=== PATIENT | male | born 1995 | race Caucasian/White ===

== ENCOUNTER 2022-03-09 15:58 | Emergency (ER) | payer SELFPAY ==
[2022-03-09 16:23] LABS: Urine Blood Negative (Negative); Urine Glucose Negative (Negative); Urine Protein Negative (Negative)
--- NOTE | 2022-03-09 17:12 | RAD REPORT ---
EXAM DESCRIPTION: CT - Head Brain Wo Cont - 03/09/2022 5:00 pm CLINICAL HISTORY: Neuro deficit, acute, stroke suspected COMPARISON: No comparisons TECHNIQUE: All CT scans are performed using dose optimization technique as appropriate and may inclu de automated exposure control or mA/KV adjustment according to patient size. FINDINGS: No intracranial hemorrhage, hydrocephalus or extra-axial fluid collection.No areas of brai n edema or evidence of midline shift. The paranasal sinuses and mastoids are clear. The calvarium is intact. IMPRESSION: No acute intracranial abnormality.
--- NOTE | 2022-03-09 17:45 | ER ---
Nurse's Notes [facility] Name: William Lopez Age: 26 yrs Sex: Male : 1995 Arrival Date: 03/09/2022 Time: 15:59 Bed 6 Private MD: Diagnosis: Weakness-And numbness of left hand Presentation: 03/09 16:06 Chief complaint: Patient states: 25 min ago my left hand/arm started to feel numb. Pt ld1 reports abusing drugs for the past 24 hours. Denies injury to left arm. Coronavirus screen: At this time, the client does not indicate any symptoms associated with coronavirus-19. Ebola Screen: No symptoms or risks identified at this time. Initial Sepsis Screen: Does the patient meet any 2 criteria? No. Patient's initial sepsis screen is negative. Does the patient have a suspected source of infection? No. Patient's initial sepsis screen is negative. Risk Assessment: Do you want to hurt yourself or someone else? Patient reports no desire to harm self or others. Onset of symptoms was March 09, 2022. 16:06 Method Of Arrival: Ambulatory ld1 16:06 Acuity: SEB 3 ld1 Triage Assessment: 16:07 General: Appears in no apparent distress. comfortable, Behavior is cooperative, ld1 appropriate for age, anxious. Pain: Denies pain. EENT: No signs and/or symptoms were reported regarding the EENT system. Neuro: Level of Consciousness is awake, alert, obeys commands, Oriented to person, place, time, situation, Siebel Architect are equal bilaterally Moves all extremities. Gait is steady, Speech is normal, Facial symmetry appears normal. Cardiovascular: Capillary refill < 3 seconds Patient's skin is warm and dry. Respiratory: Airway is patent Respiratory effort is even, unlabored. GI: Abdomen is round non-distended. : No signs and/or symptoms were reported regarding the genitourinary system. Derm: No signs and/or symptoms reported regarding the dermatologic system. Musculoskeletal: No signs and/or symptoms reported regarding the musculoskeletal system. Historical: - Allergies: 16:07 No Known Allergies; ld1 - Home Meds: 16:07 None [Active]; ld1 - PMHx: 16:07 None; ld1 - PSHx: 16:07 None; ld1 - Immunization history:: Adult Immunizations up to date, Client reports having NOT received the Covid vaccine. - Social history:: Smoking status: Reported history of juuling and/or vaping. Patient uses street drugs, cocaine, Patient/guardian denies using alcohol. - Family history:: not pertinent. Screenin:24 Abuse screen: Denies threats or abuse. Nutritional screening: No deficits noted. vg1 Tuberculosis screening: No symptoms or risk factors identified. Fall Risk No fall in past 12 months (0 pts). No secondary diagnosis (0 pts). No IV (0 pts). Ambulatory Aid- None/Bed Rest/Nurse Assist (0 pts). Gait- Normal/Bed Rest/Wheelchair (0 pts) Mental Status- Oriented to own ability (0 pts). Total Brennan Fall Scale indicates No Risk (0-24 pts). Assessment: 16:24 General: Appears in no apparent distress. uncomfortable, Behavior is calm, cooperative. vg1 Pain: Denies pain. Neuro: Level of Consciousness is awake, alert, obeys commands, Oriented to person, place, time, situation, Siebel Architect are weak on left Moves all extremities. Gait is steady, Speech is normal, Facial symmetry appears normal, Reports paresthesias in left hand Denies blurred vision dizziness. Cardiovascular: Patient's skin is warm and dry. Respiratory: Airway is patent Respiratory effort is even, unlabored. GI: Patient currently denies nausea, vomiting. : No signs and/or symptoms were reported regarding the genitourinary system. EENT: No signs and/or symptoms were reported regarding the EENT system. Derm: Skin is intact, is healthy with good turgor. Musculoskeletal: Circulation, motion, and sensation intact. 16:24 Reassessment: Pt admitted to using cocaine, stated 'the last used cocaine was vg1 yesterday'. Provider notified. Vital Signs: 16:06 BP 141 / 74; Pulse 100; Resp 18; Temp 98.1(TE); Pulse Ox 99% on R/A; Weight 74.84 kg; ld1 Height 6 ft. 2 in. (187.96 cm); Pain 0/10; 16:27 BP 121 / 70; Pulse 82; Resp 16; Pulse Ox 100% on R/A; vg1 19:53 BP 126 / 74; Pulse 80; Resp 17 S; Pulse Ox 100% on R/A; lg3 16:06 Body Mass Index 21.18 (74.84 kg, 187.96 cm) ld1 ED Course: 15:59 Patient arrived in ED. as 16:00 Anastasiya Carlisle MD is Attending Physician. ma2 16:07 Triage completed. ld1 16:07 Arm band placed on right wrist. ld1 16:16 Gertrude Soriano, RN is Primary Nurse. vg1 16:24 Patient has correct armband on for positive identification. Bed in low position. Call vg1 light in reach. Side rails up X 1. Client placed on continuous cardiac and pulse oximetry monitoring. NIBP monitoring applied. environmental monitoring technician on. 17:02 CT Head Brain wo Cont In Process Unspecified. EDMS 17:44 He Rosa MD is Referral Physician. ma2 19:14 Primary Nurse role handed off by Gertrude Soriano, RN mw2 19:52 No provider procedures requiring assistance completed. Patient did not have IV access lg3 during this emergency room visit. Administered Medications: No medications were administered Medication: 16:24 VIS not applicable for this client. vg1 Outcome: 17:45 Discharge ordered by . ma2 19:53 Discharged to home ambulatory. lg3 19:53 Condition: stable 19:53 Discharge instructions given to patient, Instructed on discharge instructions, follow up and referral plans. Demonstrated understanding of instructions, follow-up care. 19:53 Patient left the ED. lg3 Signatures: Dispatcher [employer] EDMS Karlene Yates as Anastasiya Carlisle MD MD wv2 Kenia Conley mw2 Kavya Meyer RN RN lg3 Gertrude Soriano RN RN 1 Scarlet Alexander RN RN ld1
--- NOTE | 2022-03-09 17:46 | EDPHYS ---
Physician Documentation [facility] Name: William Lopez Age: 26 yrs Sex: Male : 1995 Arrival Date: 03/09/2022 Time: 15:59 Bed 6 Private MD: ED Physician Anastasiya Carlisle HPI: 03/09 17:16 This 26 yrs old Male presents to ER via Ambulatory with complaints of Numbness Of Hand, ma2 Numbness Of Arm. 17:16 Associated signs and symptoms: Pertinent negatives: decreased sensation distally, ma2 nausea, numbness distally, vomiting. Severity of symptoms: At their worst the symptoms were moderate, in the emergency department the symptoms are unchanged. Is a 26-year-old male healthy never had any health issues, no diabetes, who had sudden numbness of left hand from the wrist distally that started 1 hour ago and has been constant since then, never had this symptom before. Patient states has been playing video games all day and has had always gets numb from certain position but usually resolve, but this time has been taken more than than usual. Historical: - Allergies: 16:07 No Known Allergies; ld1 - Home Meds: 16:07 None [Active]; ld1 - PMHx: 16:07 None; ld1 - PSHx: 16:07 None; ld1 - Immunization history:: Adult Immunizations up to date, Client reports having NOT received the Covid vaccine. - Social history:: Smoking status: Reported history of juuling and/or vaping. Patient uses street drugs, cocaine, Patient/guardian denies using alcohol. - Family history:: not pertinent. ROS: 17:16 Constitutional: Negative for fever, chills, and weight loss. ma2 Exam: 17:37 Constitutional: This is a well developed, well nourished patient who is awake, alert, ma2 and in no acute distress. Head/Face: Normocephalic, atraumatic. Eyes: Pupils equal round and reactive to light, extra-ocular motions intact. Lids and lashes normal. Conjunctiva and sclera are non-icteric and not injected. Cornea within normal limits. Periorbital areas with no swelling, redness, or edema. ENT: Nares patent. No nasal discharge, no septal abnormalities noted. Tympanic membranes are normal and external auditory canals are clear. Oropharynx with no redness, swelling, or masses, exudates, or evidence of obstruction, uvula midline. Mucous membranes moist. Neck: Trachea midline, no thyromegaly or masses palpated, and no cervical lymphadenopathy. Supple, full range of motion without nuchal rigidity, or vertebral point tenderness. No Meningismus. Chest/axilla: Normal chest wall appearance and motion. Nontender with no deformity. No lesions are appreciated. Cardiovascular: Regular rate and rhythm with a normal S1 and S2. No gallops, murmurs, or rubs. Normal PMI, no JVD. No pulse deficits. Respiratory: Lungs have equal breath sounds bilaterally, clear to auscultation and percussion. No rales, rhonchi or wheezes noted. No increased work of breathing, no retractions or nasal flaring. Abdomen/GI: Soft, non-tender, with normal bowel sounds. No distension or tympany. No guarding or rebound. No evidence of tenderness throughout. Back: No spinal tenderness. No costovertebral tenderness. Full range of motion. Skin: Warm, dry with normal turgor. Normal color with no rashes, no lesions, and no evidence of cellulitis. MS/ Extremity: Pulses equal, no cyanosis. Neurovascular intact. Full, normal range of motion. Neuro: Awake and alert, GCS 15, oriented to person, place, time, and situation. Cranial nerves II-XII grossly intact. Motor strength 5/5 in all extremities. Sensory grossly intact. Cerebellar exam normal. Normal gait. 17:37 MS/ Extremity: Decreased sensation on the left hand from the wrist distally diffuse, ma2 there is some movement however there is weakness of the finger flexion and extension and wrist flexion and extension, strength on those movements as 3 out of 5, however elbow flexion and extension is 5 out of 5,, left hand is well-perfused with brisk cap refill, and intact pulses, pulses intact, left hand is well-perfused pulses equal, no cyanosis. Neurovascular intact. Full, normal range of motion. Vital Signs: 16:06 BP 141 / 74; Pulse 100; Resp 18; Temp 98.1(TE); Pulse Ox 99% on R/A; Weight 74.84 kg; ld1 Height 6 ft. 2 in. (187.96 cm); Pain 0/10; 16:27 BP 121 / 70; Pulse 82; Resp 16; Pulse Ox 100% on R/A; vg1 19:53 BP 126 / 74; Pulse 80; Resp 17 S; Pulse Ox 100% on R/A; lg3 16:06 Body Mass Index 21.18 (74.84 kg, 187.96 cm) ld1 MDM: 16:43 Patient medically screened. ma2 17:37 Differential diagnosis: dislocation, contusion. ma2 17:37 Data reviewed: vital signs, nurses notes. Counseling: I had a detailed discussion with ma2 the patient and/or guardian regarding: the historical points, exam findings, and any diagnostic results supporting the discharge/admit diagnosis, the presence of at least one elevated blood pressure reading (>120/80) during this emergency department visit. Response to treatment: the patient's symptoms have markedly improved after treatment. ED course: He has left hand numbness and weakness but his lower motor neuron of the left hand isolated, likely peripheral neuropathy, will refer to neurology as an outpatient, CT is unremarkable. 03/09 16:23 Order name: Urine Dipstick-Ancillary; Complete Time: 16:39 [facility] 03/09 16:46 Order name: CT Head Brain wo Cont; Complete Time: 17:16 [facility] 03/09 16:01 Order name: EKG - Nurse/Tech; Complete Time: 16:22 [facility] 03/09 16:01 Order name: Urine Dipstick-Ancillary (obtain specimen); Complete Time: 16:22 [facility] Administered Medications: No medications were administered Disposition Summary: 03/09/22 17:45 Discharge Ordered Location: Home ma2 Condition: Stable ma2 Diagnosis - Weakness - And numbness of left hand ma2 Followup: ma2 - With: He Rosa MD - When: Tomorrow - Reason: If symptoms return, Continuance of care Discharge Instructions: - Discharge Summary Sheet ma2 - Weakness, [id number] ma2 Forms: - Medication Reconciliation Form ma2 - Thank You Letter ma2 - Antibiotic Education ma2 - Prescription Opioid Use ma2 - Work release form vc1 Signatures: Dispatcher [employer] [facility] Anastasiya Carlisle MD MD ma2 Scarlet Alexander RN RN ld1 Corrections: (The following items were deleted from the chart) 16:10 16:01 Urine Test ordered. ma2 ma2
[2022-03-09 20:53] VITALS: TEMP 98.1
[2022-03-09 20:55] VITALS: O2SAT 100
[2022-03-09 20:56] VITALS: BP 126/74
--- NOTE | 2022-03-11 14:43 | EKG ---
Test Date: 2022-03-09 Test Time: 16:16:55 Emr Implementation Specialist: NIKO MEASUREMENT RESULTS: Intervals: Rate: 75 RI: 134 QRSD: 86 QT: 394 QTc: 439 Roy: P: 74 RI: 134 QRS: 86 T: 73 INTERPRETIVE STATEMENTS: Normal sinus rhythm with sinus arrhythmia Normal ECG No previous ECG available for comparison Electronically Signed On 03-11-22 14:41:07 CDT by Huan George
== END 2022-03-09 19:53 | disposition home or self-care (01) ==
LOC: ER 15:58
DX: R53.1 Weakness (principal); R20.0 Anesthesia of skin
CPT/HCPCS: 70450; 81003; 93005; 99284